=== PATIENT | female | born 1995 | race African-American/Black ===

== ENCOUNTER 2018-01-25 15:40 | Emergency (ER) | payer SELFPAY ==
[~2018-01-25] VITALS: Ht 160 cm; Wt 50.0 kg
[2018-01-25 23:24] LABS: BASOPHILS % 0.5 % (0.0-2.0); EOSINOPHILS % 2.6 % (0.0-5.0); HEMOGLOBIN. 12.1 g/dL (12.0-16.0); MEAN CORPUSCULAR HEMOGLOBIN 28.3 pg (28.0-32.0); MEAN CORPUSCULAR VOLUME 86.7 fL (81.0-99.0); MEAN PLATELET VOLUME 7.6 fl (7.4-10.4); MONOCYTES % 8.9 % (2.0-8.0); PLATELET 278 x1000/uL (130-400); RED BLOOD CELL COUNT 4.27 mill/uL (4.2-5.4)
[2018-01-25 23:29] LABS: CHLORIDE 104 mEq/L (98-107)
[2018-01-25] MEDS ORDERED: CEFTRIAXONE SODIUM 250 MG/VIAL IM NR (23:45)
[2018-01-25] MEDS ORDERED: AZITHROMYCIN 500 MG TABLET PO NR (23:45)
[2018-01-26 00:35] VITALS: BP 124/78
[2018-01-28 14:11] LABS: CHLAMYDIA TRACHOMATIS NAA Negative (Negative); NEISSERIA GONORRHOEAE NAA Negative (Negative)
== END 2018-01-26 00:36 | disposition home or self-care (01) ==
LOC: ER 15:40
DX: N72 Inflammatory disease of cervix uteri (principal); N94.89 Other specified conditions associated with female genital organs and menstrual cycle
CPT/HCPCS: 36415; 76830; 76856; 80053; 81025; 85025; 86850; 86900; 86901; 87491; 87591; 96372; 99285; J0696